=== PATIENT | female | born 1970 | race African-American/Black ===

== ENCOUNTER → 2017-01-23 | Outpatient (CLI) | payer OTHER ==
[2015-11-23 10:54] VITALS: BP 126/82
[~2017-01-23] MED LIST: ATOR20TA PO; CHOL10003 PO; CYCL10TA2 PO; FLUT9.9S NS; HYDR-965 PO; LISI-338 PO; METF500T4 PO; TRIA1CAP3 PO; ZOLP10TA PO
--- NOTE | 2017-01-23 14:58 | RAD ---
DATE: January 23, 2017 EXAM: DIGITAL SCREEN BILAT W/CAD HISTORY: Routine screening. COMPARISON: Prior studies dating back to October 18, 2012. TECHNIQUE: 2D digital CC and MLO views of each breast were obtained. This study was interpreted with the benefit of Computerized Aided Detection (CAD). FINDINGS: The breast parenchyma demonstrates scattered fibroglandular densities, category B. There is no worrisome mass or area of architectural distortion. There are a few benign-appearing calcifications but no suspicious groupings of microcalcifications. IMPRESSION: Benign findings. BI-RADS CATEGORY: 2 BENIGN FINDING RECOMMENDED FOLLOW-UP: 12M 12 MONTH FOLLOW-UP PQRS compliance statement: Patient information was entered into a reminder system with a target due date for the next mammogram. Mammography is a sensitive method for finding small breast cancers, but it does not detect them all and is not a substitute for careful clinical examination. A negative mammogram does not negate a clinically suspicious finding and should not result in delay in biopsying a clinically suspicious abnormality. "Our facility is accredited by the [employer] Mammography Program."
== END | disposition home or self-care (01) ==
LOC: MAMMO 13:35
PROVIDERS: ATTEND Family Medicine
DX: Z12.31 Encounter for screening mammogram for malignant neoplasm of breast (principal)
CPT/HCPCS: G0202; 77067